=== PATIENT | male | born 2005 | race Caucasian/White ===

== ENCOUNTER 2025-03-28 13:05 | Emergency (ER) | payer OTHER, SELFPAY ==
[2025-03-28 13:13] VITALS: BP 130/74; PULSE 111; RESP 16; TEMP 36.8; O2SAT 98; BMI 20.5
--- NOTE | 2025-03-28 13:18 | XRR_ITS ---
PROCEDURE INFORMATION: Exam: XR Right Knee Exam date and time: 03/28/2025 1:25 PM Age: 19 years old Clinical indication: Right; RT knee pain no trauma per patient; Additional info: Injury TECHNIQUE: Imaging protocol: Radiologic exam of the right knee. Views: 3 views. COMPARISON: No relevant prior studies available. FINDINGS: Bones/joints: Normal. Bipartite patella. No fracture or dislocation. Soft tissues: Normal. XR/XR knee RT 3V* [id number] IMPRESSION: No acute findings.
--- NOTE | 2025-03-28 14:42 | ED_ITS ---
HPI - Skin/Abscess/Foreign Bdy General: Chief complaint: Wound/Laceration Stated complaint: R knee pain Time Seen by Provider: 03/28/25 14:35 Source: patient Mode of arrival: ambulatory Limitations: no limitations History of Present Illness: Patient is a 19-year-old male who presents to ED today with a complaint of pus pockets to his anterior right knee that he has had over the past few days. States he recently went [place] and thinks now they are worse. He does have a little bit of discomfort to the area. He is still ambulatory on the leg without difficulty or assistance. He has full range of motion of the knee. He has been attempting to drain the pus at home. No fevers or systemic symptoms. He does have a history of staph many many years ago. MD complaint: abscess/boil Onset (ago): day(s) Tetanus up to date: yes Location: RLE Severity: mild Quality: burning Pain Consistency: constant Relieving factors: none Exacerbating factors: none Context: none Associated symptoms: Reports no associated symptoms; Deny chills or fever(s) Treatments prior to arrival: attempted to drain pus at home Related Data Previous Rx's ?Medication ?Instructions ?Recorded sulfamethoxazole 800 1 tab PO BID 7 days #14 tabs 03/28/25 mg-trimethoprim 160 mg tablet (Bactrim DS) Allergies Allergy/AdvReac Type Severity Reaction Status Date / Time No Known Allergies Allergy Verified 03/28/25 13:18 Review of Systems Const: Denies: fever(s), chills, body aches, fatigue or malaise Musc: Reports: joint pain (R knee); Denies: extremity pain, extremity swelling, joint stiffness or limited range of motion Skin/Breast: Reports: new lesions (anterior R knee) PFSH ED PFSH: Medical History No pertinent past medical history Surgical History No significant past surgical history Social History Smoking and tobacco/nicotine status: never used tobacco/nicotine Second hand smoke exposure: No Alcohol intake: never Substance/Drug Use: never Adopted: No Caregiver/support person: No Lives independently: Yes Household members: family Housing: House Marital status: Single Highest education level completed: 11th Grade Physical Exam Const: COMMON NORMALS: no acute distress, average body habitus, patient oriented x3, no limitations, healthy appearing, alert and well nourished Resp: COMMON NORMALS: normal respiratory effort and clear to auscultation bilaterally AUSCULTATION: clear to auscultation bilaterally Cardio: COMMON NORMALS: regular rate and regular rhythm RATE: regular rate RHYTHM: regular rhythm OTHER: reported tachycardic in triage however HR 70s during my examination Extremity: COMMON NORMALS: full ROM, capillary refill normal, no clubbing, cyanosis or edema, no calf tenderness and no pedal edema GENERAL: Yes normal exam except as noted RIGHT LOWER EXTREMITY: Yes knee joint (3-4 areas of staph folliculitis appearing lesions anterior knee) Right knee: Yes inspection (mild surrounding erythema; no underlying fluctuance ), Yes ROM (full ROM) and Yes neurovascular exam (normal) Neuro: COMMON NORMALS: patient oriented x3, moves all extremities, no focal motor deficits, no sensory deficits noted and gait normal SENSORIUM/ORIENTATION: Yes alert Skin: NARRATIVE SKIN EXAM: see above Course Vital Signs: Vital signs: Vital Signs Temperature 98.2 F 03/28/25 13:13 Pulse Rate 111 H 03/28/25 13:13 Respiratory Rate 16 03/28/25 13:13 Blood Pressure 130/74 03/28/25 13:13 Pulse Oximetry 98 03/28/25 13:13 MDM - Skin/Abscess/Foreign Bdy Medicial Decision Making XR obtained of the knee in triage and was unremarkable. Clinically he has a mild staph folliculitis with some mild surrounding cellulitis. No concern for septic arthritis. Patient will be placed on Bactrim. Return ED precautions discussed. Medical Records I reviewed the patient's medical records. Lab Data Radiology Impressions Knee X-Ray 03/28/25 13:18 IMPRESSION: No acute findings. All radiology interpretation(s) finalized by discharge Discharge Plan Discharge Patient Disposition: Home Clinical Impression: Cellulitis of knee, right Condition: Stable Prescriptions: New sulfamethoxazole-trimethoprim [Bactrim DS] 800-160 mg tablet 1 tab PO BID 7 Days Qty: 14 0RF Discharge Orders: Discharge ED (Routine); Ordered 03/28/25 Ordered By: Theresa Sanchez Referrals: Axel Machado, HELENE [Primary Care Provider, Family Practice] Patient Instructions: Patient Portal & April Instructions Activity Restrictions/Additional Instructions: Keep wounds clean with warm soap and water. Avoid picking. Please fill your antibiotics and start them immediately. Seek medical reevaluation for worsening pain, swelling, drainage, severe pain with ambulation, or any other concerns you may have. Print Language: [place] Coding Level of Care Code ED Flight Engineer Performance Qualified for Aries Broderick
== END 2025-03-28 15:16 | disposition home or self-care (01) ==
PROVIDERS: Emergency Provider Physician Assistant; PCP Nurse Practitioner
DX: L03.115 Cellulitis of right lower limb (principal); L73.8 Other specified follicular disorders
CPT/HCPCS: 73562; 99283